=== PATIENT | female | born 1995 | race Caucasian/White ===

== ENCOUNTER 2021-02-23 12:43 | Emergency (ER) | payer OTHER, SELFPAY ==
--- NOTE | ~2021-02-23 | XR_ITS ---
EXAMINATION: XR chest 2V DATE: 02/23/2021 13:13 INDICATION: Right chest pain TECHNIQUE: PA and lateral views of the chest are obtained. COMPARISON: None available FINDINGS: The lungs are free of acute opacities. There is no pleural effusion or pneumothorax. The ca rdiomediastinal silhouette is normal. The visualized bones and soft tissues are unremarkable. IMPRESSION: 1. No acute cardiopulmonary abnormality. Reviewed, dictated and finalized at location A.
--- NOTE | 2021-02-23 12:44 | ECG_ITS ---
Measurements Intervals [place] Rate: 102 P: 37 VA: 132 QRS: 88 QRSD: 92 T: 29 QT: 334 QTc: 437 Interpretive Statements SINUS TACHYCARDIA MINIMAL Q WAVES- INFERIOR LEADS BORDERLINE T WAVE ABNORMALITY- ANTERIOR LEADS BASELINE WANDER- V3-V6 BORDERLINE ECG Electronically Signed On 02-23-2021 16:27:55 CDT by Max Rodriguez D.O.
[2021-02-23 12:49] VITALS: BP 118/74; PULSE 94; RESP 22; TEMP 36.7; O2SAT 97
[2021-02-23 12:54] VITALS: PULSE 90
[2021-02-23 13:11] LABS: Basophils Percent Auto 0.4 % (0.2-1.2); Eosinophils Absolute Auto 0.1 K/mm3 (0-0.3); Hematocrit 39.2 % (37.0-47.0); Hemoglobin 13.5 g/dL (12.0-15.0); Immature Granulocyte Absolute 0.02 K/mm3 (0.00-0.031); Immature Granulocyte Percent A 0.4 % (0-0.5); Lymphocytes Absolute Auto 1.56 K/mm3 (0.9-3.2); Lymphocytes Percent Auto 31.1 % (18.3-44.2); Mean Corpuscular HGB Conc 34.4 g/dl (32-36); Mean Corpuscular Hemoglobin 31.4 pg (26-34); Mean Corpuscular Volume 91.2 fl (80-100); Mean Platelet Volume 9.8 fl (7.4-10.4); Monocytes Absolute Auto 0.4 K/mm3 (0.1-0.6); Monocytes Percent Auto 7.4 % (2.6-8.5); Neutrophils Percent Auto 59.7 % (45.5-73.1); Platelet Count Result 352 k/mm3 (150-375); Red Cell Distribution Width 11.9 % (11.5-14.5)
[2021-02-23 13:21] LABS: INR 0.8; Prothrombin Time 12.1 Seconds (11.1-14.7)
--- NOTE | 2021-02-23 13:21 | ED.CHESTPAIN ---
HPI - Chest Pain General Chief Complaint: Chest Pain Stated Complaint: chest pains Time Seen by Provider: 02/23/21 13:00 Source: patient Mode of arrival: ambulatory Limitations: no limitations History of Present Illness HPI narrative: This is a 25-year-old female that presents the emergency department for intermittent chest pain since yesterday. Reports the pain is sharp and intermittent in nature. Worse with breathing, and sometimes with movement. She has not taken anything for pain. Denies fever, cough, shortness of breath, or lower extremity edema. Related Data Home Medications Medication Instructions Recorded Confirmed No Home Medications 02/23/21 02/23/21 Allergies Allergy/AdvReac Type Severity Reaction Status Date / Time No Known Allergies Allergy Verified 02/23/21 12:45 Review of Systems Review of Systems: Narrative: CONSTITUTIONAL: Denies fever CARDIOVASCULAR: Reports chest pain. Denies edema. RESPIRATORY: Denies cough or dyspnea. All systems reviewed & are unremarkable except as noted in HPI and below PMFSH Past Medical History Medical History (Updated 02/23/21 @ 15:13 by Hayley Alexander PA-C) No active medical problems Social History Social History (Updated 02/23/21 @ 13:22 by Hayley Alexander PA-C) Smoking status: Never smoker Gender identity (if verbalized by the patient): Male Exam Narrative: Exam Narrative: GENERAL: Well-appearing, well-nourished, and in no acute distress. HEAD: Normocephalic, atraumatic. EYES: EOMI. CHEST: Clear to auscultation. No respiratory distress. No wheezes rales or rhonchi HEART: Regular rate and rhythm. No murmur heard. Normal peripheral pulses. EXTREMITIES: Normal range of motion. No edema. SKIN: Warm, dry, no rash. NEURO: No focal deficits. Alert and oriented x3. PSYCH: Normal mood and affect Course Vital Signs Vital signs: Vital Signs Temperature 98.1 F 02/23/21 12:49 Pulse Rate 94 02/23/21 12:49 Respiratory Rate 22 H 02/23/21 12:49 Blood Pressure 118/74 02/23/21 12:49 Pulse Oximetry 97 02/23/21 12:49 Temperature 98.1 F 02/23/21 12:49 Pulse Rate 74 02/23/21 13:45 Respiratory Rate 20 02/23/21 13:45 Blood Pressure 99/68 L 02/23/21 13:45 Pulse Oximetry 99 02/23/21 13:45 MDM - Chest Pain MDM Narrative Medical decision making narrative: Patient presents emergency department for intermittent chest pain since yesterday. Does report pain is worse with movement, seems to be more musculoskeletal in nature. She is afebrile and nontoxic-appearing. Her vitals are stable. CBC and metabolic panel without concerning findings. EKG without concerning changes and baseline troponin is negative. D-dimer was not elevated. Chest x-ray is without acute cardiopulmonary abnormality. Her heart score is 0. Patient is stable and felt appropriate for further outpatient evaluation. She was given warnings to return to the ER Lab Data Attestation: I reviewed the patient's lab results. Result diagrams: 02/23/21 13:04 02/23/21 13:04 Labs: Lab Results 02/23/21 02/23/21 02/23/21 Range/Units 13:04 13:04 13:04 WBC 5.0 (4.5-10.0) K/mm3 RBC 4.30 (4.2-5.4) M/mm3 Hgb 13.5 (12.0-15.0) g/dL Hct 39.2 (37.0-47.0) % MCV 91.2 (80-100) fl MCH 31.4 (26-34) pg MCHC 34.4 (32-36) g/dl RDW 11.9 (11.5-14.5) % Plt Count 352 (150-375) k/mm3 MPV 9.8 (7.4-10.4) fl Immature Gran % (Auto) 0.4 (0-0.5) % Neut % (Auto) 59.7 (45.5-73.1) % Lymph % (Auto) 31.1 (18.3-44.2) % [place] % (Auto) 7.4 (2.6-8.5) % Eos % (Auto) 1.0 (0-4.4) % Baso % (Auto) 0.4 (0.2-1.2) % Lymph # (Auto) 1.56 (0.9-3.2) K/mm3 [place] # (Auto) 0.4 (0.1-0.6) K/mm3 Eos # (Auto) 0.1 (0-0.3) K/mm3 Baso # (Auto) 0.0 (0.0-0.1) K/mm3 Abs Immat Gran (auto) 0.02 (0.00-0.031) K/mm3 Absolute Neuts (auto) 3.0 (1.3-6.7) K/mm3 Absolute Nucleated RBC 0.0 (0.
[2021-02-23 13:22] LABS: Anion Gap 8 mmol/L (8-16); Blood Urea Nitrogen 11 mg/dL (7-17); Calcium 9.1 mg/dL (8.4-10.2); Carbon Dioxide 27 mmol/L (22-30); Chloride 106 mmol/L (98-107); Estimated CRCL calculation 105 ml/min; Estimated Glomerular Filt Rate > 60; Glucose 92 mg/dL (65-105); Partial Thromboplastin Time 25.3 SECONDS (22.3-36.8); Potassium 4.1 mmol/L (3.4-5.0); Sodium 141 mmol/L (137-145)
[2021-02-23 13:32] LABS: D Dimer 0.27 ug/mL (<0.48)
[2021-02-23 13:34] LABS: Troponin I < 0.012 ng/mL (0.000-0.034)
[2021-02-23 13:45] VITALS: BP 99/68; PULSE 74; RESP 20; O2SAT 99
[2021-02-23] MEDS: KETOROLAC 15 MG/ML VIAL (*BKC) IV PUSH (14:30)
[2021-02-23 15:34] VITALS: BP 101/71; PULSE 68; RESP 18; O2SAT 98
== END 2021-02-23 15:38 | disposition home or self-care (01) ==
PROVIDERS: Emergency Medicine; Physician Assistant; Emergency Provider Emergency Medicine; PCP Nurse Practitioner Family
DX: R07.89 Other chest pain (principal); R00.0 Tachycardia, unspecified; R94.31 Abnormal electrocardiogram [ECG] [EKG]
CPT/HCPCS: 36415; 71046; 80048; 84484; 85025; 85380; 85610; 85730; 93005; 96374; 99284; J1885